=== PATIENT | female | born 1955 | race Caucasian/White ===

== ENCOUNTER 2018-12-24 18:53 | Emergency (ER) | payer BC ==
[2018-12-24] MEDS ORDERED: KETOROLAC 30 MG/ML VIAL IVP ONE (19:32)
[2018-12-24] MEDS ORDERED: DIPHENHYDRAMINE HCL 50 MG/ML VIAL IVP ONE (19:32)
[2018-12-24] MEDS ORDERED: METOCLOPRAMIDE HCL 10 MG/2 ML VIAL IVP ONE (19:32)
--- NOTE | 2018-12-24 19:37 | Emergency Department Record ---
History of Present Illness - General Chief complaint: Flu Like Symptoms Stated complaint: FLU LIKE SYMPTOMS Time Seen by Provider: 12/24/18 19:32 Source: Patient Mode of Arrival: Ambulatory Limitations: No limitations - History of Present Illness Initial comments: 63 yo female presents to ED for evaluation of nausea, vomiting, and intermittent headache symptoms for the past 3 days. Patient reports symptoms of fatigue and elevated blood pressure readings, denies chest pain, abdominal pain, or urinary symptoms. Patient reports a history of HTN at her baseline. Patient denies use of anticoagulation medications. MD Complaint: Generalized weakness Onset/Timin -: Days(s) Location: Generalized Severity: Moderate Consistency: Constant Improves with: None Worsens with: None Associated Symptoms: Nausea/vomiting - [place] Coma Scale Eye Response: (4) Open spontaneously Motor Response: (6) Obeys commands Verbal Response: (5) Oriented Jessica Total: 15 - Related Data Home Medications Medication Instructions Recorded Confirmed Last Taken Atorvastatin Calcium [Lipitor] 20 mg PO DAILY 12/24/18 12/24/18 1 Day Ago ~12/23/18 Clonazepam [Klonopin] 0.5 mg PO TID PRN 12/24/18 12/24/18 1 Day Ago ~12/23/18 Duloxetine HCl 60 mg PO DAILY 12/24/18 12/24/18 1 Day Ago ~12/23/18 Estradiol [Estrace] 1 mg PO DAILY 12/24/18 12/24/18 1 Day Ago ~12/23/18 Fluorometholone [Fml Forte] 1 drop OP DAILY 12/24/18 12/24/18 1 Day Ago ~12/23/18 Gabapentin [Neurontin] 100 mg PO BID 12/24/18 12/24/18 1 Day Ago ~12/23/18 Lisinopril [Prinivil] 5 mg PO DAILY 12/24/18 12/24/18 1 Day Ago ~12/23/18 Metformin HCl [Metformin HCl ER] 500 mg PO BID 12/24/18 12/24/18 1 Day Ago ~12/23/18 Metoprolol Succinate [Toprol Xl] 50 mg PO DAILY 12/24/18 12/24/18 1 Day Ago ~12/23/18 Omeprazole 80 mg PO DAILY 12/24/18 12/24/18 1 Day Ago ~12/23/18 Oxybutynin Chloride [Oxybutynin 10 mg PO DAILY 12/24/18 12/24/18 1 Day Ago Chloride ER] ~12/23/18 Previous Rx's Medication Instructions Recorded Ondansetron [Zofran Odt] 4 mg PO Q8H PRN #15 tab.rapdis 12/24/18 Allergies Allergy/AdvReac Type Severity Reaction Status Date / Time gentamicin [From Garamycin] Allergy DIFFICULTY Verified 12/24/18 19:38 BREATHING Review of Systems Constitutional: Reports: Malaise. Denies: Chills, Fever, Night sweats Eyes: Denies: Eye discharge, Eye pain ENT: Denies: Congestion, Ear pain, Epistaxis Respiratory: Denies: Cough, Dyspnea Cardiovascular: Denies: Chest pain, Dyspnea on exertion Endocrine: Reports: Fatigue. Denies: Heat or cold intolerance Gastrointestinal: Reports: Diarrhea, Nausea, Vomiting. Denies: Abdominal pain Genitourinary: Denies: Dysuria, Incontinence, Retention Musculoskeletal: Denies: Arthralgia, Back pain Skin: Denies: Bruising, Change in color Neurological: Reports: Headache. Denies: Abnormal gait, Confusion, Tingling, Tremors Psychiatric: Denies: Anxiety Hematological/Lymphatic: Denies: Anemia, Blood Clots Physical Exam - General General Appearance: Alert, Oriented x3, Cooperative, Mild distress Limitations: No limitations - Head Head exam: Atraumatic, Normocephalic, Normal inspection Head exam detail: negative: Abrasion, Contusion, Trent's sign, General tenderness, Hematoma, Laceration - Eye Eye exam: Normal appearance. negative: Conjunctival injection, Periorbital swelling, Periorbital tenderness, Scleral icterus - ENT Ear exam: negative: Auricular hematoma, Auricular trauma Nasal Exam: negative: Active bleeding, Discharge, Dried blood, Foreign body Mouth exam: negative: Drooling, Laceration, Muffled voice, Tongue elevation - Neck Neck exam: Normal inspection, Other (No meningeal signs are present on examination). negative: Meningismus, Tenderness - Respiratory Respiratory exam: Normal lung sounds bilaterally. negative: Respiratory distress, Rhonchi, Stridor, Wheezes - Cardiovascular Cardiovascular Exam: Regular rate, Normal rhythm, Normal heart sounds - GI/Abdominal GI/Abdominal exam: Soft. negative: Distended, Rebound, Rigid, Tenderness - Rectal Rectal exam: Deferred - exam: Deferred - Extremities Extremities exam: Normal inspection. negative: Pedal edema, Tenderness - Back Back exam: Denies: CVA tenderness (R), CVA tenderness (L) - Neurological Neurological exam: Alert, Normal gait, Oriented X3 - Psychiatric Psychiatric exam: Normal affect, Normal mood - Skin Skin exam: Normal color. negative: Abrasion Type of lesion: negative: abrasion Course - Reevaluation(s) Reevaluation #1: 12/24/18 19:55 EKG: NSR 70 LAD, normal intervals No acute ST-T wave changes are present on examination. Reevaluation #2: 12/24/18 20:51 Laboratory studies were reviewed and appear grossly unremarkable for an acute process. Reevaluation #3: 12/24/18 21:14 CT Brain: No acute process Patient was updated on all results, reports that she is feeling much better. Patient appears stable for discharge with Zofran as needed for residual nausea/vomiting symptoms. All questions were answered, and the patient appears stable for discharge at this time. Medical Decision Making - Lab Data Result diagrams: 12/24/18 20:18 12/24/18 20:18 Disposition Disposition: Discharge Clinical Impression: Nausea vomiting and diarrhea, Generalized weakness Headache Qualifiers: Headache type: unspecified Headache chronicity pattern: unspecified pattern Intractability: not intractable Qualified Code(s): R51 - Headache Disposition: Home, Self-Care Condition: (2) Stable Instructions: Acute Nausea and Vomiting (ED) Additional Instructions: Return to ED if your symptoms worsen or if you have any concerns. Zofran as directed. Drink plenty of fluids, rest. Follow-up with your family doctor in 3-5 days as directed. Prescriptions: Ondansetron [Zofran Odt] 4 mg PO Q8H PRN #15 tab.rapdis PRN Reason: Nausea/Vomiting Forms: Patient Portal Access Time of Disposition: 21:15 Quality - Quality Measures Quality Measures: N/A - Blood Pressure Screening Does Patient Have Any of the Following: No Blood Pressure Classification: Pre-Hypertensive BP Reading Systolic Measurement: 155 Diastolic Measurement: 89 Screening for High Blood Pressure: < Pre-Hypertensive BP, F/U Documented > [G8950] Pre-Hypertensive Follow-up Interventions: Referral to alternative/primary care provider.
[2018-12-24] MEDS ORDERED: 0.9 % SODIUM CHLORIDE 1000ML 1,000 ML IV SCH (19:45)
[2018-12-24 20:16] LABS: URINE APPEARANCE CLEAR; URINE BILIRUBIN MODERATE (NEGATIVE); URINE BLOOD NEGATIVE (NEGATIVE); URINE COLOR YELLOW; URINE GLUCOSE (UA) NEGATIVE (NEGATIVE); URINE KETONE TRACE (NEGATIVE); URINE LEUKOCYTE ESTERASE NEGATIVE (NEGATIVE); URINE NITRITE NEGATIVE (NEGATIVE)
[2018-12-24 20:21] LABS: ABSOLUTE NEUTROPHIL COUNT 5.68; BASO % 0.5 % (0-6); EOS % 1.5 % (0-6); GRAN % 66.9 % (47-80); HEMATOCRIT 43.5 % (35.0-47.0); HEMOGLOBIN 14.3 gm/dl (11.6-16.0); MEAN CELL VOLUME 85.6 fl (81-97); MEAN CORPUSCULAR HEMOGLOBIN 28.1 pg (27-33); MEAN CORPUSCULAR HGB CONC 32.9 g/dl (32-36); MEAN PLATELET VOLUME 10.8 fl (7.4-10.4); MONO % 6.1 % (0-9); PLATELET COUNT 212 K/uL (130-400); RED BLOOD COUNT 5.08 M/uL (3.80-5.40); RED CELL DISTRIBUTION WIDTH 13.7 % (11.5-14.5); WHITE BLOOD COUNT W/O DIFF 8.5 K/uL (4.2-12.2)
[2018-12-24 20:33] LABS: BLOOD UREA NITROGEN 13 mg/dL (8-23); CREATININE 0.9 mg/dL (0.5-0.9); EST GLOMERULAR FILTRATION RATE > 60 mL/min
[2018-12-24 20:34] LABS: TOTAL PROTEIN 7.7 g/dL (6.6-8.7)
[2018-12-24 20:36] LABS: GLUCOSE,RANDOM 139 mg/dL (74-109)
[2018-12-24 20:38] LABS: ALB/GLOB RATIO 1.6 (1.1-1.8); ALBUMIN 4.7 g/dL (4.0-5.0); ALT/SGPT 14 U/L (<33); AST/SGOT 19 U/L (10.0-35.0)
[2018-12-24 20:39] LABS: ALKALINE PHOSPHATASE 102 U/L (35-104)
--- NOTE | 2018-12-25 20:11 | CT SCAN REPORT ---
EXAM: CT SCAN HEAD WO CONTRAST HISTORY: HEADACHE AND FLU-LIKE SYMPTOMS FOR THE PAST THREE DAYS. VOMITING. LIGHTHEADEDNESS. TECHNIQUE: Standard CT imaging of the brain was performed in the axial plane without contrast. Additional coronal and sagittal reformatted images were also performed. COMPARISON: None. FINDINGS: The brain volume is normal. There is no mass, mass effect, intracranial hemorrhage, visible acute infarct, or abnormal extraaxial fluid. The skull is intact. Mucous retention cysts or polyps are noted within the left maxillary sinus. There is mild mucosal thickening within the ethmoid and right maxillary sinus. The orbits and mastoids are normal. IMPRESSION: NO ACUTE INTRACRANIAL ABNORMALITY. JOB NUMBER: [id number] MTDD
== END 2018-12-24 21:31 | disposition home or self-care (01) ==
LOC: ER 18:53
DX: R11.2 Nausea with vomiting, unspecified (principal); R19.7 Diarrhea, unspecified; R53.1 Weakness; E11.9 Type 2 diabetes mellitus without complications; I10 Essential (primary) hypertension
CPT/HCPCS: 99284 ×2; 96374; 96375; 96361; 85025; 80053; 81003; 70450; 93005; 93010; J1885; J1200; J2765; J7030